=== PATIENT | female | born 1960 | race Caucasian/White ===

== ENCOUNTER → 2017-12-27 | Outpatient (CLI) | payer OTHER ==
[~2017-12-27] MED LIST: ASCO500 PO; Antacid500 MG PO; COMPLETE MULTI1 EAC1 PO; FISH1000 PO; LEVLIO1 PO; MULVITA PO; PROGESTERONE TOP; THYROID PO; VITAMIN D
== END ==
LOC: LAB SHORT 13:43
DX: N39.0 Urinary tract infection, site not specified (principal)
CPT/HCPCS: 87077; 87086; 87186

== ENCOUNTER → 2019-05-16 | Outpatient (CLI) | payer OTHER ==
[~2019-05-16] MED LIST changes: +CETI5 PO; +LIRA0.6P SC; +LOSA25 PO
[2019-05-16 13:40] LABS: BASOPHILS ABSOLUTE AUTO 0.05 K/mm3 (0.00-0.23); BASOPHILS PERCENT AUTO 1 % (0-2); EOSINOPHILS ABSOLUTE AUTO 0.12 K/mm3 (0.00-0.68); EOSINOPHILS PERCENT AUTO 1 % (0-6); Hematocrit 45.1 % (33.0-51.0); Hemoglobin 15.1 g/dL (11.5-16.0); IMMATURE GRAN ABSOLUTE AUTO 0.03 K/mm3 (0.00-0.10); IMMATURE GRAN PERCENT AUTO 0 % (0-1); LYMPHOCYTES ABSOLUTE AUTO 1.99 K/mm3 (0.84-5.20); LYMPHOCYTES PERCENT AUTO 20 % (21-46); MONOCYTES ABSOLUTE AUTO 0.58 K/mm3 (0.16-1.47); MONOCYTES PERCENT AUTO 6 % (4-13); Mean Corpuscular HGB 30.3 pg (26.0-34.0); Mean Corpuscular HGB Conc 33.5 g/dL (31.5-36.5); Mean Corpuscular Volume 90 fL (80-100); Mean Platelet Volume 9.5 fL (9.1-12.4); NEUTROPHILS ABSOLUTE AUTO 7.27 K/mm3 (1.96-9.15); NEUTROPHILS PERCENT AUTO 72 % (41-73); Platelet Count 301 K/mm3 (150-400); RDW Coefficient Variation 12.1 % (11.7-14.2); Red Blood Cell Count 4.99 M/mm3 (3.80-5.20); White Blood Cell Count 10.04 K/mm3 (4.00-11.30)
[2019-05-16 13:56] LABS: Anion Gap 4 mmol/L (6-16); Blood Urea Nitrogen 11 mg/dL (8-24); Bun/Creatinine Ratio 18.7 (12.0-20.0); CO2, Blood 29 mmol/L (21-32); Calcium, Blood 8.7 mg/dL (8.5-10.1); Chloride, Blood 104 mmol/L (98-108); Creatinine, Blood 0.59 mg/dL (0.40-1.00); Glomerular Filtration Rate >60 (60-); Glucose, Blood 174 mg/dL (70-99); Potassium, Blood 4.3 mmol/L (3.5-5.5); Sodium, Blood 137 mmol/L (136-145)
== END | disposition home or self-care (01) ==
LOC: LAB 12:20 → LAB SHORT 12:20
PROVIDERS: Physician Assistant
DX: N39.0 Urinary tract infection, site not specified (principal); R31.9 Hematuria, unspecified
CPT/HCPCS: 80048; 85025; 87086

== ENCOUNTER 2019-06-30 10:10 | Day surgery (SDC) | payer OTHER ==
[~2019-06-30 10:10] MED LIST changes: -CETI5 PO; -LIRA0.6P SC; -LOSA25 PO
[2019-07-28] MEDS ORDERED: LOSA25 PO (15:01)
[2019-07-28] MEDS ORDERED: LIRA0.6P SC (15:03)
[2019-07-28] MEDS ORDERED: CETI5 PO (15:03)
== END 2019-06-30 22:46 | disposition home or self-care (01) ==
LOC: MOI MAM 10:10
DX: C50.912 Malignant neoplasm of unspecified site of left female breast (principal); R92.0 Mammographic microcalcification found on diagnostic imaging of breast; Z17.1 Estrogen receptor negative status [ER-]
CPT/HCPCS: 19081; 88305; 88342; 88360

== ENCOUNTER 2019-08-02 05:59 | Day surgery (SDC) | payer OTHER ==
[~2019-08-02] VITALS: Ht 175.3 cm; Wt 87.6 kg
[~2019-08-02 05:59] MED LIST changes: +CETI5 PO; +LIRA0.6P SC; +LOSA25 PO
--- NOTE | 2019-08-02 06:52 | NUR ---
Ambulatory in Day Surgery History, Chart, Medications and Allergies reviewed before start of procedure.Patient confirms NPO status and agrees with scheduled surgery. Patient reports completing Chlorhexadine shower X2 prior to admission to hospital.Surgical site prepped with 2% Chlorhexidine cloth wipe. Lungs clear T/O to Auscultation. Patient States Post-Procedure ride home has been arranged.
--- NOTE | 2019-08-02 09:41 | NUR ---
Discharge instructions reviewed with patient. Patient verbalizes understanding. Copy given to patient to take home. ICE PACK WAS APPLIED TO [facility] SITE FOR COMFORT. SITE C/D/I WITH PORT ACCESSED. PT READY FOR DC HOME/[facility]. DRESSED. Discharged via wheelchair to private car for ride home.
== END 2019-08-02 09:25 | disposition home or self-care (01) ==
LOC: ORSCMMR 05:59 → ORD 07:30 → ORSCMMR 07:30
DX: C50.919 Malignant neoplasm of unspecified site of unspecified female breast (principal); E11.9 Type 2 diabetes mellitus without complications; E03.9 Hypothyroidism, unspecified; Z79.899 Other long term (current) drug therapy
CPT/HCPCS: 77001; 82947; C1788; J0690; J1100; J1642; J2250; J2405; J2704; J3010; J7120

== ENCOUNTER 2020-01-06 08:49 | Day surgery (SDC) | payer OTHER ==
[~2020-01-06] VITALS: Ht 172.7 cm; Wt 87.2 kg
[~2020-01-06 08:49] MED LIST changes: +GABA300 PO; +THERA1 EACH PO; +THYR60 PO; +XARELTO20 MG PO
--- NOTE | 2020-01-06 13:39 | NUR ---
Ambulatory in Day Surgery History, Chart, Medications and Allergies reviewed before start of procedure.Lungs clear T/O to Auscultation. Patient confirms NPO status and agrees with scheduled surgery. Patient reports completing Chlorhexadine shower X2 prior to admission to hospital.Surgical site prepped with 2% Chlorhexidine cloth wipe. Patient States Post-Procedure ride home has been arranged.
--- NOTE | 2020-01-06 17:02 | NUR ---
01/06/20 1702 Camille Washington ALL ORD.ERNA ENTRIES ENTERED BY ORD.JXM.
--- NOTE | 2020-01-06 18:12 | NUR ---
PT DISCHARGED HOME. PT & COLIN VERBALIZE UNDERSTANDING OF ALL DISCHARGE INSTRUCTIONS. NO ACUTE CHANGES AT TIME OF DISCHARGE HOME.
== END 2020-01-06 23:24 | disposition home or self-care (01) ==
LOC: NM 08:49 → ORSCMMR 08:49 → NM 10:00
PROVIDERS: Surgery
PROC: 0HBU0ZZ Excision of Left Breast, Open Approach (ICD-10-PCS; principal; 2020-01-06 13:45)
PROC: 07B60ZX Excision of Left Axillary Lymphatic, Open Approach, Diagnostic (ICD-10-PCS; principal; 2020-01-06 13:45)
DX: C50.312 Malignant neoplasm of lower-inner quadrant of left female breast (principal); D36.0 Benign neoplasm of lymph nodes; E11.9 Type 2 diabetes mellitus without complications; I10 Essential (primary) hypertension; E03.9 Hypothyroidism, unspecified; E78.5 Hyperlipidemia, unspecified; Z79.899 Other long term (current) drug therapy
CPT/HCPCS: 38792; 82947; A9520; J0690; J2250; J2370; J2405; J2704; J3010; J7120; Q9968

== ENCOUNTER 2021-01-10 08:39 | Day surgery (SDC) | payer OTHER ==
[~2021-01-10 08:39] MED LIST changes: +PREG50 PO; +PRESERVISION PO; +TUMS500 MG PO; +VICTOZA 2-0.6 MG/0.1; +ZYRTEC10 M2 PO
== END 2021-01-10 22:37 | disposition home or self-care (01) ==
LOC: MOI MAM 08:39
DX: N63.20 Unspecified lump in the left breast, unspecified quadrant (principal); R92.1 Mammographic calcification found on diagnostic imaging of breast; C50.912 Malignant neoplasm of unspecified site of left female breast; Z85.3 Personal history of malignant neoplasm of breast; Z17.1 Estrogen receptor negative status [ER-]
CPT/HCPCS: 19081; 88305; 88341; 88342; 88360

== ENCOUNTER 2021-03-09 11:30 | Day surgery (SDC) | payer OTHER ==
[~2021-03-09] VITALS: Ht 172.7 cm; Wt 82.8 kg
--- NOTE | 2021-03-09 12:23 | NUR ---
Ambulatory in Day Surgery History, Chart, Medications and Allergies reviewed before start of procedure.Lungs clear T/O to Auscultation. Patient confirms NPO status and agrees with scheduled surgery.
--- NOTE | 2021-03-09 12:36 | NUR ---
03/09/21 1236 Maxi Ibarra History, Chart, Medications and Allergies reviewed before start of procedure. MONITOR INTACT WITH CONTINUOUS PULSE OXIMETRY AND INTERMITTENT BP. 3-LEAD EKG REVIEWED WITH PHYSICIAN PRIOR TO START OF PROCEDURE. O2 VIA N/C INTACT THROUGHOUT SEDATION/PROCEDURE.
--- NOTE | 2021-03-09 13:52 | NUR ---
ASSUMED CARE OF PT. REPORT FROM MINNA RN. PT VSS, STATES NO NEEDS AT THIS TIME. CALL LIGHT WITHIN REACH. DR. GAUTHIER SPOKE WITH PT AT BEDSIDE. PT WATCHING TV. WILL CONTINUE TO MONITOR.
[2021-03-09 13:53] LABS: Performing Lab SYMBIODX; Test Name FLOW CYTOMETRY
--- NOTE | 2021-03-09 15:19 | NUR ---
Patient up to Ambulate independently. Gait steady. Discharge instructions reviewed with patient. Patient verbalizes understanding. Copy given to patient to take home. PT PASSED GAG REFLEX TEST AND IS ABLE TO TOLERATE ORAL FLUIDS. Discharged via wheelchair to private car for ride home.
== END 2021-03-09 15:15 | disposition home or self-care (01) ==
LOC: ORSCMMR 11:30 → ORD 12:30 → ORSCMMR 15:15
PROVIDERS: Internal Medicine Critical Care Medicine
PROC: 0B9H8ZX Drainage of Lung Lingula, Via Natural or Artificial Opening Endoscopic, Diagnostic (ICD-10-PCS; principal; 2021-03-09 12:30)
DX: R91.8 Other nonspecific abnormal finding of lung field (principal); C50.912 Malignant neoplasm of unspecified site of left female breast; Z79.899 Other long term (current) drug therapy
CPT/HCPCS: 82947; 87015; 87070; 87102; 87116; 87205; 87206; 87260; 87275; 87276; 87279; 87280; 87299; 88108; 88112; 88184; 88185; 88305; 88312; A9270; J0171; J2250; J3010; J7120

== ENCOUNTER 2021-06-27 00:25 | Day surgery (SDC) | payer OTHER | END 2021-06-27 23:23 | disposition home or self-care (01) | LOC: WOUND 00:25 | DX: C50.919 Malignant neoplasm of unspecified site of unspecified female breast (principal); M21.371 Foot drop, right foot | CPT/HCPCS: G0463 ==

== ENCOUNTER 2021-07-04 01:14 | Day surgery (SDC) | payer OTHER | END 2021-07-04 23:05 | disposition home or self-care (01) | LOC: WOUND 01:14 | DX: S91.301D Unspecified open wound, right foot, subsequent encounter (principal); L27.1 Localized skin eruption due to drugs and medicaments taken internally; C50.919 Malignant neoplasm of unspecified site of unspecified female breast; G62.89 Other specified polyneuropathies; Z92.21 Personal history of antineoplastic chemotherapy; Z88.1 Allergy status to other antibiotic agents; Z88.8 Allergy status to other drugs, medicaments and biological substances | CPT/HCPCS: A9270; G0463 ==

== ENCOUNTER 2022-01-29 06:59 | Day surgery (SDC) | payer OTHER ==
[~2022-01-29] VITALS: Ht 172.7 cm; Wt 85.9 kg
[~2022-01-29 06:59] MED LIST changes: +FLOVENT HFA12 GM INH; +LEVSOD112 PO; +MULTIPLE VITAM1 EACH PO; +Preservision S1 EACH PO; +Vitamin C100 M1 PO
--- NOTE | 2022-01-29 08:27 | NUR ---
01/29/22 0827 Shahrzad Gutierrez History, Chart, Medications and Allergies reviewed before start of procedure. Patient confirms NPO status and agrees with scheduled surgery. 3-LEAD EKG REVIEWED WITH PHYSICIAN PRIOR TO START OF PROCEDURE. MONITOR INTACT WITH CONTINUOUS PULSE OXIMETRY AND INTERMITTENT BP. PATIENT DETERMINED TO BE ASA APPROPRIATE FOR PROPOFOL SEDATION PRIOR TO START OF PROCEDURE BY DR. LOMBARDO.
--- NOTE | 2022-01-29 09:15 | NUR ---
Discharge instructions reviewed with patient. Patient verbalizes understanding. Copy given to patient to take home. Discharged via wheelchair to private car for ride home.
== END 2022-01-29 09:20 | disposition home or self-care (01) ==
LOC: ORSCMMR 06:59 → ORD 08:30 → ORSCMMR 08:30
PROVIDERS: Surgery
PROC: 0DJD8ZZ Inspection of Lower Intestinal Tract, Via Natural or Artificial Opening Endoscopic (ICD-10-PCS; principal; 2022-01-29 08:30)
DX: Z12.11 Encounter for screening for malignant neoplasm of colon (principal); Z86.010 Personal history of colon polyps; E78.5 Hyperlipidemia, unspecified; E03.9 Hypothyroidism, unspecified; Z79.899 Other long term (current) drug therapy
CPT/HCPCS: J2704; J7120

== ENCOUNTER → 2023-10-23 | Outpatient (CLI) | payer MEDICARE, OTHER ==
[2023-10-23 15:34] LABS: Candida species (DNA Probe) Positive (NEGATIVE); G. vaginalis (DNA Probe) Negative (NEGATIVE); T. vaginalis (DNA Probe) Negative (NEGATIVE)
[2023-10-30 20:22] LABS: C. TRACHOMATIS BY TMA,THINPREP Negative (Negative); N. GONORRHOEAE BY TMA,THINPREP Negative (Negative); SPECIMEN SOURCE Not Provided
[2023-11-06 07:22] LABS: HPV GENOTYPE 16 Not Detected; HPV GENOTYPE 18 Not Detected; HPV HIGH RISK Not Detected; HPV SOURCE Cervical
== END ==
LOC: LAB SHORT 09:15 → LAB 09:15
PROVIDERS: Family Medicine
DX: Z01.419 Encounter for gynecological examination (general) (routine) without abnormal findings (principal)
CPT/HCPCS: 87480; 87491; 87510; 87591; 87624; 87660; G0123